=== PATIENT | female | born 1980 | race American Indian/Alaskan Native ===

== ENCOUNTER 2018-09-09 11:52 | Emergency (ER) | payer SELFPAY ==
--- OUTSIDE RECORDS SUMMARY | 2018-09-09 11:53 | XMS REPORT | Clinical Summary ---
:1980 Author Organization [facility] Address [address] [place] [id number] Care Team Providers Name Role Phone Brigitte Hernández MD Primary Care Provider Allergies No Known Allergies Current Medications Prescription Sig. Disp. Refills Start Date End Date Status insulin ASPART (NovoLOG) Inject under the Active 100 unit/mL injection skin 3 (three) times a day before meals. gabapentin (NEURONTIN) Take 100 mg by Active 100 mg capsule mouth 3 (three) times a day. Active Problems Not on file Social History Tobacco Use Types Packs/Day Years Used Date Never Smoker Sex Assigned at Date Recorded Not on file Last Filed Vital Signs Not on file Plan of Treatment Health Maintenance Due Date Last Done Comments CERVICAL CANCER SCREENING 1999 INFLUENZA VACCINE 06/15/2018 Results Not on fileafter 09/08/2017 Insurance Payer Benefit Plan / Group Subscriber ID Type Phone Address [employer] xxxxxxxxxxxx HMO
--- NOTE | 2018-09-09 13:04 | ER ---
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 Reports scrubbing wound after stick exposure. Transition of care: patient was not received from another setting of care. Onset of symptoms was September 09, 2018. Risk Assessment: Do you want to hurt yourself or someone else? Patient reports no desire to harm self or others. Initial Sepsis Screen: Does the patient meet any 2 criteria? No. Patient's initial sepsis screen is negative. Does the patient have a suspected source of infection? No. Patient's initial sepsis screen is negative. Care prior to arrival: None. 12:01 Method Of Arrival: Ambulatory 12:01 Acuity: ROSEMARY 4 aj Triage Assessment: 12:03 General: Appears in no apparent distress. comfortable, Behavior is calm, cooperative, aj appropriate for age. Pain: Denies pain. Neuro: Level of Consciousness is awake, alert, obeys commands, Oriented to person, place, time, situation, Appropriate for age. Respiratory: Airway is patent Respiratory effort is even, unlabored, Respiratory pattern is regular, symmetrical. Derm: Skin is intact, is healthy with good turgor, Skin is pink, warm \T\ dry. normal. 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 - Social history:: Smoking status: Patient/guardian denies using tobacco. - Ebola Screening: : Patient negative for fever greater than or equal to 101.5 degrees Fahrenheit, and additional compatible Ebola Virus Disease symptoms Patient denies exposure to infectious person Patient denies travel to an Ebola-affected area in the 21 days before illness onset No symptoms or risks identified at this time. Screenin:30 Abuse screen: Denies threats or abuse. Nutritional screening: No deficits noted. em Tuberculosis screening: No symptoms or risk factors identified. Fall Risk None identified. Assessment: 12:30 General: Appears in no apparent distress. 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 Pain: Complains of pain in palmar aspect of distal phalanx of left index finger. Neuro: Level of Consciousness is awake, alert, obeys commands, Oriented to person, place, time, situation. Cardiovascular: Capillary refill < 3 seconds Patient's skin is warm and dry. Respiratory: Airway is patent Respiratory effort is even, unlabored, Respiratory pattern is regular, symmetrical. GI: Abdomen is. Derm: Skin is intact, Skin is pink, warm \T\ dry. Musculoskeletal: Range of motion: intact in all extremities. 12:35 General: The previous assessment is accurate, call light remains within reach. . 13:00 Reassessment: Patient appears in no apparent distress at this time. Patient and/or em family updated on plan of care and expected duration. Pain level reassessed. Patient is alert, oriented x 3, equal unlabored respirations, skin warm/dry/pink. pt labs are sent off, provider will contact pt when resulted. Vital Signs: 12:03 BP 153 / 79; Pulse 92; Resp 17; Temp 98.0; Pulse Ox 100% on R/A; Weight 83.91 kg; aj Height 5 ft. 5 in. (165.10 cm); 12:03 Body Mass Index 30.79 (83.91 kg, 165.10 cm) ED Course: 11:56 Patient arrived in ED. mr 11:56 None, None is Private Physician. mr 11:57 Scott Pelaez PA is PHCP. [facility] 11:57 Kwame Moreira MD is Attending Physician. [facility] 12:02 Triage completed. aj 12:03 Arm band placed on left wrist. Patient placed in an exam room. aj 12:17 Bryson Andres LVN is Primary Nurse. em 12:30 Patient has correct armband on for positive identification. Bed in low position. Call em light in reach. 12:30 No provider procedures requiring assistance completed. Initial lab(s) drawn, by me, em sent to lab. 13:12 Patient did not have IV access during this emergency room visit. em Administered Medications: No medications were administered Outcome: 13:04 Discharge ordered by . skylar 13:12 Discharged to home ambulatory. em 13:12 Condition: good 13:12 Discharge instructions given to patient, Instructed on discharge instructions, follow up and referral plans. Demonstrated understanding of instructions, follow-up care. 13:13 Patient left the ED. em Signatures: Unique Maldonado, RN RN Scott Castellon PA PA jmm Rivera, Mary mr DmitryBryson, PILE HEADER PILE HEADER em Elizabeth Mejía, MAC RN ss
--- NOTE | 2018-09-09 13:04 | EDPHYS ---
Physician Documentation [facility] Name: Rosangela Casas Age: 38 yrs Sex: Female : 1980 Arrival Date: 09/09/2018 Time: 11:56 Bed 14 Private MD: None, None ED Physician Kwame Moreira HPI: 09/09 12:16 This 38 yrs old Female presents to ER via Ambulatory with complaints of jmm Needle Stick Exposure. 12:16 The patient or guardian reports injury, a puncture wound, from a needle. The complaints jmm affect the palmar aspect of distal phalanx of left index finger. Onset: The symptoms/episode began/occurred acutely, just prior to arrival. Modifying factors: The symptoms are alleviated by nothing, the symptoms are aggravated by nothing. This is a 38 year old female with a history of DM that presents to [facility] ED with a puncture wound to the left index finger. patient states she was attempting to cap a used needle from a patient at a dialysis center. Patient states the wound bled immediately. Patient is UTD on immunizations. Patient declined immunoglobulin. Patient states the patient has no known history of hepatitis or HIV. . 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 - Social history:: Smoking status: Patient/guardian denies using tobacco. - Ebola Screening: : Patient negative for fever greater than or equal to 101.5 degrees Fahrenheit, and additional compatible Ebola Virus Disease symptoms Patient denies exposure to infectious person Patient denies travel to an Ebola-affected area in the 21 days before illness onset No symptoms or risks identified at this time. ROS: 12:16 Constitutional: Negative for fever, chills, and weight loss, Cardiovascular: Negative jmm for chest pain, palpitations, and edema, Respiratory: Negative for shortness of breath, cough, wheezing, and pleuritic chest pain. 12:16 Skin: Positive for puncture. 12:16 All other systems are negative. Exam: 12:16 Head/Face: atraumatic. Eyes: EOMI, no conjunctival erythema appreciated ENT: Moist [facility] Mucus Membranes Neck: Trachea midline, Supple Chest/axilla: Normal chest wall appearance and motion. Cardiovascular: Regular rate and rhythm. No edema appreciated Respiratory: Normal respirations, no respiratory distress appreciated Abdomen/GI: Non distended, soft Back: Normal ROM 12:16 Constitutional: The patient appears in no acute distress, alert, awake. 12:16 Skin: puncture wound noted to the left index finger, no active bleeding appreciated, no erythema or induration appreciated. Vital Signs: 12:03 BP 153 / 79; Pulse 92; Resp 17; Temp 98.0; Pulse Ox 100% on R/A; Weight 83.91 kg; aj Height 5 ft. 5 in. (165.10 cm); 12:03 Body Mass Index 30.79 (83.91 kg, 165.10 cm) aj MDM: 12:09 Patient medically screened. [facility] 12:16 Data reviewed: vital signs, nurses notes. [facility] 13:03 Counseling: I had a detailed discussion with the patient and/or guardian regarding: the [facility] historical points, exam findings, and any diagnostic results supporting the discharge/admit diagnosis, radiology results, the need for outpatient follow up, to return to the emergency department if symptoms worsen or persist or if there are any questions or concerns that arise at home. 13:03 Data interpreted: Pulse oximetry: on room air is 100 %. Interpretation: normal. [facility] 09/09 12:15 Order name: HEPATITIS EXPOSURE PANEL [facility] 09/09 12:16 Order name: HIV AG/AB SCREEN EDNE Administered Medications: No medications were administered Disposition: 13:42 Co-signature as Attending Physician, Kwame Moreira MD. rn Disposition: 09/09/18 13:04 Discharged to Home. Impression: Contact with contaminated hypodermic needle. - Condition is Stable. - Discharge Instructions: Needlestick Injury. - Medication Reconciliation Form, Thank You Letter, Antibiotic Education, Prescription Opioid Use form. - Follow up: Private Physician; When: 2 - 3 days; Reason: Recheck today's complaints, Continuance of care, Re-evaluation by your physician. Signatures: Dispatcher [employer] EDMS Unique Maldonado RN RN Scott Castellon PA PA Bryson Moscoso, CATHEAD OPERATOR CATHEAD OPERATOR Kwame Conway MD MD inpatient services rn: (The following items were deleted from the chart) 12:44 12:15 Miscellaneous Lab Test+[id number].LAB.[id number] ordered. EDMS EDMS 13:13 13:04 09/09/2018 13:04 Discharged to Home. Impression: Contact with contaminated em hypodermic needle. Condition is Stable. Forms are Medication Reconciliation Form, Thank You Letter, Antibiotic Education, Prescription Opioid Use. Follow up: Private Physician; When: 2 - 3 days; Reason: Recheck today's complaints, Continuance of care, Re-evaluation by your physician. noellem
[2018-09-12 07:36] LABS: HIV 1/2 Antibody Diff Not indicated.; HIV AG/AB 4TH GEN Non-reactive (Non-reactive)
[2018-09-13 19:06] LABS: HBsAG Nonreactive (Nonreactive)
== END 2018-09-09 13:13 | disposition home or self-care (01) ==
LOC: ER 11:52
DX: S61.231A Puncture wound without foreign body of left index finger without damage to nail, initial encounter (principal); W46.1XXA Contact with contaminated hypodermic needle, initial encounter; Y93.89 Activity, other specified; Y92.89 Other specified places as the place of occurrence of the external cause; E11.9 Type 2 diabetes mellitus without complications
CPT/HCPCS: 86705; 86803; 87340; 87389; 99283